=== PATIENT | male | born 1955 | race Two or more races ===

== ENCOUNTER 2021-01-10 21:14 | Emergency (ER) | payer OTHER ==
[~2021-01-10] VITALS: Ht 170.2 cm; Wt 106.8 kg
[2021-01-10 21:23] VITALS: BP 159/89
--- NOTE | 2021-01-10 21:42 | NUR ---
PT AMBULATED TO ROOM. PT STATES HE FELL AND DOESN'T REMEMBER VERY MUCH OF THE INCIDENT. UNKNOWN LOSS OF CONSCIOUSSNESS. PT A&OX4, FULL STRENGTH RN PROGRESSIVE CARE BILATERAL, AND PUSH/PULL ON FEET STRONG. PUPILS: ERRLA, PT WITH ABRASIONS TO LEFT SIDE OF FACE, AT TEMPORAL AREA ABOVE LEFT EYE, ON LEFT CHEEK AND ON LEFT SIDE OF MOUTH, UPPER LIP IS SWOLLEN. PT WITH ABRASIONS TO RIGHT HAND KNUCKLES AND INTERIOR LATERAL SIDE OF RIGHT HAND. PT WITH ABRASION TO LEFT KNEE WELL. PT WITH OLD SWELLING TO RIGHT KNEE FROM PREVIOUS FALL WHILE PLAYING TENNIS.
[2021-01-10] MEDS ORDERED: LIDOCAINE-MPF 1%, 2ML ONE (22:53)
[2021-01-10] MEDS ORDERED: LIDOCAINE 1%, 2ML INFIL ONE (23:00)
[2021-01-10] MEDS ORDERED: DIPH,PERTUSS(ACELL),TET VAC/PF 0.5 ML IM-VACC ONE ×2 (23:48→23:49)
[2021-01-11] MEDS ORDERED: DIPH,PERTUSS(ACELL),TET VAC/PF 0.5 ML IM-VACC ONE
--- NOTE | 2021-01-11 00:01 | NUR ---
F/U AND D/C INSTRUCTIONS GIVEN TO PT, AND HE IS AMBULATORY. TDAP VACCINE GIVEN TO PT ON REQUEST, RIGHT DELTOID. LOGGED.
== END 2021-01-11 00:05 | disposition home or self-care (01) ==
LOC: ED 23:27
DX: S00.81XA Abrasion of other part of head, initial encounter (principal); S00.511A Abrasion of lip, initial encounter; S00.212A Abrasion of left eyelid and periocular area, initial encounter; S09.90XA Unspecified injury of head, initial encounter; M70.41 Prepatellar bursitis, right knee; W01.0XXA Fall on same level from slipping, tripping and stumbling without subsequent striking against object, initial encounter; Y93.89 Activity, other specified; Y92.89 Other specified places as the place of occurrence of the external cause; Y99.8 Other external cause status
CPT/HCPCS: 10060; 70450; 72125; 90471; 90715; 93005; 99285; J3490